=== PATIENT | female | born 1945 | race Caucasian/White ===

== ENCOUNTER → 2020-01-29 | Outpatient (CLI) | payer OTHER, MEDICARE | LOC: LAB 09:29 | PROVIDERS: ATTEND Internal Medicine Gastroenterology | DX: Z01.812 Encounter for preprocedural laboratory examination (principal); Z20.828 Contact with and (suspected) exposure to other viral communicable diseases ==

== ENCOUNTER → 2020-02-02 | Outpatient (CLI) | payer OTHER, MEDICARE ==
[~2020-02-02] VITALS: Ht 167.6 cm; Wt 49.0 kg
[~2020-02-02] MED LIST: OMEPRAZOLE 20 M20 M1 PO; SERTRALINE HCL100 MG PO; TRAMADOL 50 MG50 MG PO; TYLENOL EXTRA500 MG PO; VALIUM5 MG PO
--- NOTE | 2020-02-04 19:07 | PATH ---
[facility] [place] [address] PATHOLOGY RPT PROCEDURE Name: IKE RANDLEMak Szymanski Room #: REG AMBROSIO Ravi.#: [id number] Admission: 02/02/20 Date of : 43 Discharge: Report #: [id number] Path Case #: [id number] [facility] Accession Number: [id number] . 01 Material submitted: . PART A: duodenum - DUODENAL BIOPSY R/O CELIAC PART B: stomach - ANTRUM BIOPSY R/O H. PYLORI PART C: colon - RANDOM COLON BIOPSY R/O MICRO COLITIS . 01 Clinical history: . WEIGHT LOS, COLITIS; INTERNAL HEMORROIDS; DIARRHEA . 02 Diagnosis: A. Small bowel mucosa, duodenum to rule out celiac, endoscopic biopsy: - No significant diagnostic abnormalities present. - Negative for villous blunting or increase in intraepithelial lymphocytes. . B. Gastric mucosa, antrum to rule out H. pylori, endoscopic biopsy: - Mild reactive gastropathy. - Negative for intestinal metaplasia or atrophy. - Negative for Helicobacter pylori (properly controlled immunohistochemical stain performed). . C. Large intestine, random colon to rule out microscopic colitis, endoscopic biopsy: - Mild to moderate active colitis involving all fragments sampled. - Negative for dysplasia or malignancy. . ([employer] international; 02/04/2020) MBR 02/04/2020 1236 Local . 02 Comment: C. Sections of the colonic mucosa designated "random" show focal cryptitis, and a moderately cellular lamina propria composed predominantly of lymphocytes and plasma cells and occasional eosinophils. Surface ulceration is not identified. There are no crypt abscesses, granulomas or viral inclusions. The process affects all the fragments with a similar intensity. Given the description, the differential diagnosis includes active colitis due to an infectious etiology, early inflammatory bowel disease, medication or drug induced colitis, as well as diverticulitis. Please correlate with clinical as well as endoscopic findings. ([employer] international; 02/04/2020) . 02 Electronically signed: . Maria Del Carmen Barros MD, Pathologist NPI- [id number] [place] [address] PATHOLOGY RPT PROCEDURE Name: DONNA RANDLE Room #: REG BEV Lu#: [id number] Admission: 02/02/20 Date of : 43 Discharge: Report #: [id number] Path Case #: [id number] . 01 Gross description: . A. The specimen is received in formalin, labeled "Ike Randlee", "duodenal biopsy on the requisition, and random duodenal biopsy on the container". Received are 2 segments of pale gaming soft tissue measuring 0.1 and 0.2 cm. The specimen is entirely submitted in cassette A1. . B. The specimen is received in formalin, labeled "Donna Randle", "antrum biopsy". Received are 2 segments of pale gaming soft tissue measuring 0.2 and 0.3 cm. The specimen is entirely submitted in cassette B1. . C. The specimen is received in formalin, labeled "Jer Revekirstene", "random colon biopsy". Received are multiple segments of pale gaming soft tissue, ranging in size from 0.1 cm to 0.3 cm. The specimen is entirely submitted in cassette C1.([facility]; 02/03/2020) BECKA/IZABELLA 02/03/2020 1558 Local . 02 Pathologist provided ICD-10: K31.9, K52.9 . 02 CPT . 483405, 334220, [id number], [id number] Specimen Comment: A courtesy copy of this report has been sent to [phone], [phone] Specimen Comment: [phone] Specimen Comment: Report sent to / DR WADE Performed at: 01 [facility] [address] [place] [address] [address], [place], [place] [id number] MD Edilberto Marinelli MD Phone: [phone] Performed at: [address] [id number] MD Maria Del Carmen Barros MD Phone: [phone]
== END | disposition home or self-care (01) ==
LOC: EDSEX → GI
PROVIDERS: ATTEND Internal Medicine Gastroenterology
DX: R19.4 Change in bowel habit (principal); R63.4 Abnormal weight loss; K52.9 Noninfective gastroenteritis and colitis, unspecified; K31.9 Disease of stomach and duodenum, unspecified; R42 Dizziness and giddiness; K44.9 Diaphragmatic hernia without obstruction or gangrene; K64.8 Other hemorrhoids; F17.210 Nicotine dependence, cigarettes, uncomplicated; Z98.890 Other specified postprocedural states; Z79.899 Other long term (current) drug therapy; Z96.651 Presence of right artificial knee joint; Z90.49 Acquired absence of other specified parts of digestive tract; Z88.0 Allergy status to penicillin; Z88.8 Allergy status to other drugs, medicaments and biological substances
CPT/HCPCS: 62110; 62900